=== PATIENT | female | born 1955 | race Caucasian/White ===

== ENCOUNTER 2018-09-03 13:00 | Outpatient (RCR) | payer BC, OTHER | END 2018-09-03 13:30 | disposition home or self-care (01) | LOC: OT 13:00 | DX: G56.01 Carpal tunnel syndrome, right upper limb (principal) ==

== ENCOUNTER → 2019-05-18 | Outpatient (CLI) | payer BC, OTHER | LOC: LAB 14:58 | PROVIDERS: Psychiatry & Neurology Neurology | DX: M54.2 Cervicalgia (principal); M25.511 Pain in right shoulder; M79.601 Pain in right arm ==

== ENCOUNTER → 2019-05-20 | Outpatient (CLI) | payer BC, OTHER | LOC: RAD 08:52 | DX: M48.02 Spinal stenosis, cervical region (principal); M54.12 Radiculopathy, cervical region | CPT/HCPCS: A9585 ==

== ENCOUNTER → 2021-02-16 | Outpatient (CLI) | payer BC, OTHER | LOC: RAD 17:07 | DX: M43.16 Spondylolisthesis, lumbar region (principal); M51.36 Other intervertebral disc degeneration, lumbar region; R60.0 Localized edema ==

== ENCOUNTER 2024-08-11 12:11 | Outpatient (RCR) | payer MEDICARE, BC, OTHER ==
[~2024-08-11 12:11] MED LIST: ALENDRONATE SOD70 MG PO; AMOXICILLIN AND1 TA2 PO; CYCLOBENZAPRINE10 M1 PO; DESYREL 100MG100 MG PO; DIVALPROEX SOD500 MG PO; FERREX 150150 MG PO; OXYCODONE HCL E10 MG PO; PERCOCET 325 MG1 TAB PO; QUETIAPINE FUM300 MG PO; SAVELLA100 MG PO; SIMVASTATIN20 M1 PO; SYMPROIC0.2 MG PO; WELLBUTRIN XL150 M2 PO; WELLBUTRIN XL300 M1 PO; ZITHROMAX TRI-500 MG PO
== END 2024-08-14 13:08 | disposition home or self-care (01) ==
LOC: OPPGERO 12:11
DX: F33.2 Major depressive disorder, recurrent severe without psychotic features (principal); F41.1 Generalized anxiety disorder

== ENCOUNTER 2024-08-17 12:31 | Outpatient (RCR) | payer MEDICARE, BC, OTHER | END 2024-09-11 19:38 | disposition home or self-care (01) | LOC: OPPGERO 12:31 | DX: F33.2 Major depressive disorder, recurrent severe without psychotic features (principal); F41.1 Generalized anxiety disorder ==